=== PATIENT | female | born 1970 | race African-American/Black ===

== ENCOUNTER 2020-08-17 12:59 | Outpatient (CLI) | payer OTHER, SELFPAY ==
--- NOTE | ~2020-08-17 | XR_ITS ---
EXAMINATION: XR shoulder RT min 2V DATE: 08/17/2020 13:18 INDICATION: Right shoulder pain. TECHNIQUE: 4 views of right shoulder were obtained. COMPARISON: None. FINDINGS: Bone alignment is normal. No fracture. There is mild osteoarthritis of glenohumeral joint a nd acromioclavicular joint. IMPRESSION: 1. Polyarticular osteoarthritis. Reviewed, dictated and finalized at location A. OF PRODUCT
== END 2020-08-17 13:00 | disposition home or self-care (01) ==
PROVIDERS: PCP Internal Medicine; Visit Provider Nurse Practitioner
DX: M19.011 Primary osteoarthritis, right shoulder (principal)
CPT/HCPCS: 73030

== ENCOUNTER 2020-10-04 15:00 | Outpatient (RCR) | payer OTHER, SELFPAY ==
--- NOTE | 2020-08-30 15:08 | PTOPEVAL ---
Thank you for referring Peggy Block to [facility].? The patient is scheduled to be seen for therapy? 1 x/week for 5 weeks. Please review, sign, date and return this plan of care ALONDRA. I agree with and certify that the following plan of care is medically necessary. 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 She tries to keep proper posture, but is unsure if maintaining properly. Subjective Information She reports has been having Query Text:As Reported By Patient/ issues with her shoulder for Family some, but recently has increased pain at night. The pain is waking her night. She prefers to sleep on right side . C/o pins/needles into the scapular region with prolonged sleeping on shoulder. She has reports pain and limitations with reaching behind her back. She is limited with carrying objects on right side. 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 Denies problems with prolonged sitting or use of computer. She has been taking muscle relaxor with no significant relief. Diagnostic Tests X-Rays For This Problem Yes: mild OA Previous Treatments Previous Treatments For This Problem no Pain Assessment Pain Scale Used Numeric (1 - 10) Self Report Pain Assessment Right Shoulder(s) Reported Pain Level 3 Pain Description Aching,Numbness,Tingling Pain Frequency Chronic,Continuous Lowest Pain Intensity 1 Greatest Pain Intensity 8 Pain Aggravating Factors ADL's,Lifting Upper Extremity Range of Motion Scapular/ Shoulder Range of Motion Left Shoulder Flexion - Active 160 Shoulder Extension - Active 54 Shoulder Abduction - Active 160 Shoulder Medial Rotation - Active 78 Shoulder Medial Rotation - Active T8 Query Text:Reach Behind the Back Shoulder Lateral Rotation - Active 90 Shoulder Lateral Rotation - Active T1 Query Text:Reach Behind the Head Right Shoulder Flexion - Active 156 Shoulde
--- NOTE | 2020-10-04 15:44 | PTOPEVAL ---
Thank you for referring Peggy Block to [facility].? Peggy has received 6 therapy visits to address her shoulder impairments. She demonstrates improve shoulder range, shoulder and scapular strength and performance with daily task. She has achieved her therapy goals at this time. Will plan to D/C skilled therapy services. Please review, sign, date and return this discharge summary ALONDRA. I agree with and certify that the following plan of care is medically necessary. 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 She tries to keep proper posture, but is unsure if maintaining properly. Subjective Information She reports her shoulder pain Query Text:As Reported By Patient/ has improved when at rest. She Family has increase pain with performing her exercises. Denies pain is waking her night. Denies any C/o pins/ needles into the scapular region. She gets away from her computer 4-5x/day. 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 She denies any increased pain with reaching behind her back. Pain Assessment Right Shoulder(s) Reported Pain Level 0 Pain Frequency Intermittent Lowest Pain Intensity 0 Greatest Pain Intensity 3 Pain Aggravating Factors Exercise/Activity Upper Extremity Range of Motion Scapular/ Shoulder Range of Motion Right Scapular: Retraction Normal Scapular: Protraction Normal Scapular Downward Rotation Normal Scapular Upward Rotation Normal Shoulder Flexion - Active 165 Shoulder Extension - Active 42 Shoulder Abduction - Active 160 Shoulder Medial Rotation - Active 70 Shoulder Medial Rotation - Active T9 Query Text:Reach Behind the Back Shoulder Lateral Rotation - Active 90 Shoulder Lateral Rotation - Active T1 Query Text:Reach Behind the Head Upper Extremity Muscle Strength Testing Scapular/Shoulder Left Scapular Retraction - Middle Trapezius 3+ Fair + Scapular Retraction - Lower Trapezius 3- Fair - Shoulder Flexion Strength 5 Normal Shoulder Extension Strength 5 Normal Shoulder Abduction Strength 5 Normal Shoulder Medial Rotation Strength 5 Normal Shoulder Lateral Rotation Strength 5 Normal Right Scapular Retraction - Middle Trapezius 3+ Fair + Scapular Retraction - Lo
== END 2020-11-13 08:21 | disposition home or self-care (01) ==
LOC: ANHPT 15:00
PROVIDERS: PCP Internal Medicine; Visit Provider Clinical Nurse Specialist
DX: M25.512 Pain in left shoulder (principal); G89.29 Other chronic pain
CPT/HCPCS: 97035; 97110; 97140; 97161

== ENCOUNTER 2022-09-17 15:30 | Outpatient (RCR) | payer OTHER, SELFPAY ==
--- NOTE | 2022-08-21 09:15 | PTOPEVAL1 ---
Assessment and note entered by Brandon Hernandez, PT Evaluation Information Assessment Status Evaluation Diagnosis dorsalgia Onset late last year Subjective Information Patient reports late last year she woke up in the middle of the night with pain in her back. It has gotten progressively better, but is still there. She is currently taking tramadol for the pain at night before bed and would not like to continue doing that. Patient reports no radiating symptoms . 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 Clinical Summary Peggy is a 52 year old female coming into the clinic with R sided non-radiating back pain. It has improved since initial incident. Patient does have tightness in the low thoracic upper lumbar region mainly around L1, L2 along with some core and hip weakness and a small leg length discrepancy. The patient was also educated on posture with her sitting job and avoiding prolonged positions. Patient will do physical therapy to improve strength, stretch out the back, and manual and modalities for pain as warranted. Goal is to prevent this acute issue from turning into a chronic issue. These treatments will address the objective and functional deficits as defined above. The patient will be advanced safely and appropriately in order for the patient to progress towards his/her prior level of function. Additional exercises will be introduced and as well as a comprehensive home exercise program upon discharge, if needed, ?to ensure carryover of functional gains achieved in the clinic. This treatment plan has been reviewed and agreement upon by the patient.
--- NOTE | 2022-09-17 16:07 | PTOPDC ---
Assessment and note entered by Brandon Hernandez, PT Evaluation Information Assessment Status Discharge Diagnosis dorsalgia Onset 2 months ago Subjective Information Patient reports she is no longer needing to take medication for pain and it is at 2/10 at its worst . Patient states she does not always do her HEP, but has pulled them out when her back does stiffen up Reported Pain Level Pain Score 0: Self Report Additional Pain Score Comments 2 at its worst in the last week Assessment PT Clinical Summary Peggy is a 52 year old coming into the clinic for back pain, she reports she no longer needs her prescription pain meds and that the pain is at worst 2/10. She met her lower extremity and core strengthening goals. Discharged from skilled physical therapy. Plan of Care PT Services Indicated No Treatment Frequency and Discharged from skilled physical therapy. Duration
== END 2022-11-03 10:42 | disposition home or self-care (01) ==
LOC: ANHPT 15:30
PROVIDERS: PCP Internal Medicine; Visit Provider Nurse Practitioner
DX: M54.9 Dorsalgia, unspecified (principal)
CPT/HCPCS: 97110; 97112; 97140; 97161

== ENCOUNTER 2023-11-12 15:17 | Outpatient (CLI) | payer OTHER, SELFPAY ==
--- NOTE | ~2023-11-12 | XR_ITS ---
EXAMINATION:XR cervical spine 4-5V DATE: 11/12/2023 15:43 INDICATION: Right-sided predominant chronic cervicalgia TECHNIQUE: AP, lateral, lateral flexion, lateral extension and odontoid views of the cervical spine a re provided. COMPARISON: None FINDINGS: 5 degrees cervical dextrocurvature. 2 mm anterolisthesis C7 on T1 which is unchanged with flexion and extension. Normal alignment of the more cephalad cervical spine with normal motion on flexion and ex tension. Odontoid is intact. Normal atlantoaxial interval. Vertebral body heights are normal. Mild d isc height loss with degenerative endplate osteophytes at C4-C5, C5-C6 and C6-C7. Mild to moderate un covertebral osteoarthritis at these levels. Moderate to severe facet osteoarthritis at C7-T1 with mil d osteoarthritis of the more cephalad cervical spine. Prevertebral soft tissues are normal. Visualiz ed apices of lungs are clear. IMPRESSION: 1. Mild cervical spondylosis. 2. 2 mm anterolisthesis C7 on T1 which is unchanged with flexion and extension. Reviewed, dictated and finalized at location A.
== END 2023-11-12 15:18 ==
PROVIDERS: PCP Internal Medicine; Visit Provider Nurse Practitioner
DX: M43.02 Spondylolysis, cervical region (principal)
CPT/HCPCS: 72050

== ENCOUNTER 2024-09-28 14:46 | Outpatient (CLI) | payer OTHER, SELFPAY ==
--- NOTE | 2024-09-28 15:03 | ECHO_ITS ---
Patient Info Name: Peggy Block Age: 54 years : 1970 Gender: Female Ht: 68 in Wt: 230 lbs BSA: 2.28 m2 HR: 66 bpm BP: 131 / 84 mmHg Technical Quality: Good Exam Date: 09/28/2024 3:11 PM Exam Location: Echo Lab Patient Status: Outpatient Admit Date: 09/28/2024 Staff Ordering Physician: Elissa Devine NP Billing Spec: Cassandra Lara RDCS Attending Provider: Elissa Devine NP Referring Physician: Sybil RUSSELL; Exam Type: CA echo doppler color flow Study Info Indications Z82.49 - Family history of ischemic heart disease and other diseases of the circulatory system Complete two-dimensional, color flow and Doppler transthoracic echocardiogram is performed. Summary 1. Complete two-dimensional, color flow and Doppler transthoracic echocardiogram is performed. 2. Left ventricular chamber dimension is normal. 3. Left ventricular systolic function is normal, estimated at 60-65%. 4. The left ventricular diastolic function is normal. 5. E/e' 9 is minimally elevated. 6. Left atrial chamber dimension is mildly enlarged. 7. There is mild mitral valve regurgitation. 8. There is mild tricuspid valve regurgitation. 9. No pulmonary hypertension, estimated pulmonary arterial systolic pressure is 30 mmHg. Left Ventricle E/e' 9 is minimally elevated. Left ventricular chamber dimension is normal. Left ventricular systolic function is normal, estimated at 60-65%. The left ventricular diastolic function is normal. Right Ventricle Right ventricular systolic function is normal and with normal TAPSE 2.5 cm. Right ventricular chamber dimension is normal. Left Atria Left atrial chamber dimension is mildly enlarged. Right Atria Right atrial chamber dimension is normal. Aortic Valve The aortic valve is trileaflet. There is no aortic valve stenosis. There is no aortic valve regurgitation. Pulmonic Valve There is no pulmonic regurgitation. Mitral Valve There is no mitral valve stenosis. There is mild mitral valve regurgitation. Tricuspid Valve There is mild tricuspid valve regurgitation. No pulmonary hypertension, estimated pulmonary arterial systolic pressure is 30 mmHg. Pericardium/Pleural There is no pericardial effusion. Inferior Vena Cava Normal inferior vena cava with >50% collapse upon inspiration consistent with normal right atrial pressure, 5 mmHg. Aorta The aortic root size at the sinus of Valsalva is normal. Left Ventricular Outflow Tract Name Value Normal LVOT 2D LVOT Diameter 1.9 cm LVOT Doppler LVOT Peak Gradient 5 mmHg LVOT Mean Gradient 3 mmHg LVOT VTI 24 cm LVOT VTI/AV VTI Ratio 0.7 LVOT Stroke Volume 68 ml LVOT CO 14.7 l/min LVOT CI 6.5 l/min/m2 Pulmonic Valve Name Value Normal PV Doppler PV Peak Gradient 5 mmHg Mitral Valve Name Value Normal MV Doppler MV Decel [place] 412 cm/s2 MV PHT 78 ms MV Area (PHT) 2.8 cm2 4.0-5.0 MV Diastolic Function MV E Peak Velocity 111 cm/s MV A Peak Velocity 100 cm/s MV E/A 1.1 MV Decel Time 270 ms MV Annular TDI MV E/e' (Septal) 10.6 <=8.0 MV E/e' (Lateral) 9.0 <=8.0 MV E/e' (Average) 9.8 Tricuspid Valve Name Value Normal TV Regurgitation Doppler TR Peak Velocity 248 cm/s TR Peak Gradient 25 mmHg Estimated PAP/RSVP RA Pressure 5 mmHg <=5 PA Systolic Pressure 30 mmHg <36 RV Systolic Pressure 30 mmHg <36 Aorta Name Value Normal Ascending Aorta Ao Root Diameter (MM) 2.5 cm Ao Root Diam Index (MM) 1.1 cm/m2 Aortic Valve Name Value Normal AV Doppler AV Peak Velocity 155 cm/s AV Peak Gradient 10 mmHg AV Mean Gradient 6 mmHg AV VTI 35 cm AV Area (Cont Eq VTI) 2.0 cm2 >=3.0 AV Area (Cont Eq Andre) 2.0 cm2 AV Regurgitation 2D LVOT Area 2.8 cm2 Ventricles Name Value Normal LV Dimensions 2D/MM IVS Diastolic Thickness (2D) 0.9 cm 0.6-1.0 LVID Diastole (2D) 4.2 cm 3.8-5.2 LVIW Diastolic Thickness (2D) 0.9 cm 0.6-0.9 LVID Systole (2D) 2.6 cm 2.2-3.5 LVOT Diameter 1.9 cm LV Mass (2D Cubed) 122.89 g 67.00-162.00 LV Mass Index (2D Cubed) 54 g/m2 43-95 Relative Wall Thickness (2D) 0.44 LV Fractional Shortening/Ejection Fraction 2D/MM LV Fractional Shortening (2D) 40 % 27-45 LV EF (2D Teicholz) 71 % 54-74 LV Diastolic Volume (4C MOD) 97 ml LV EF (4C MOD) 62 % LV Diastolic Volume (2C MOD) 99 ml LV EF (2C MOD) 71 % LV Diastolic Volume (BP MOD) 101 ml 46-106 LV Diastolic Volume Index (BP MOD) 44 ml/m2 29-61 LV Systolic Volume (BP MOD) 33 ml 14-42 LV Systolic Volume Index (BP MOD) 14 ml/m2 8-24 LV EF (BP MOD) 67 % 54-74 LV Diastolic Length (4C) 7.3 cm LV Systolic Length (4C) 5.9 cm LV Stroke Volume (4C MOD) 60 ml Atria Name Value Normal LA Dimensions LA Dimension (MM) 3.1 cm 2.7-3.8 LA Volume (4C A-L) 59 ml LA Volume (BP A-L) 56 ml RA Dimensions RA Area (4C) 13.2 cm2 <=18.0 Report Signatures
--- OUTSIDE RECORDS SUMMARY | 2024-09-28 16:05 | XMS_ITS | Clinical Summary ---
Author Organization [facility] Phys[facility] Building [address] [place] [id number] Care Team Providers Care Production Illustrator Name Role Phone Corona Denney DO Primary Care Provider [phone] Allergies No known active allergies Medications multivitamin-Ca -iron-minerals tablet Take 1 tablet by mouth daily Active calcium carbonate-vitam in D3 250-125 mg-unit tablet Take 5 tablets by mouth once a week Active multivitamin tabletIndicatio ns:Vitamin Deficiency Prevention Take 1 tablet by mouth Active cholecalciferol (Vitamin D3) 400 unit capsule Active losartan (COZAAR) 100 mg tablet 02/02/2024 Active Active Problems Problem Noted Date Diagnosed Date Vitamin D deficiency 06/25/2018 Multinodular goiter 07/30/2017 Assessment & Plan (2024 7:17 PM CDT): - Thyroid Ultrasound performed in office today - Overall diffusely enlarged Thyroid gland with bilateral multiple nodules, - plan to perform left thyroid nodule FNA biopsy and possible aspiration of the right thyroid nodule - no compressive symptom Assessment & Plan (03/09/2023 2:36 PM CDT): - Thyroid Ultrasound performed in office today - Overall diffusely enlarged Thyroid gland with bilateral multiple nodules, - overall thyroid nodules remain stable, excepted growth - no compressive symptoms - follow up in one -2 year for a repeat Thyroid U/S Assessment & Plan (08/12/2021 4:33 PM SATELLITE PROJECT SITE MONITOR): - Thyroid Ultrasound performed in office today - Overall diffusely enlarged Thyroid gland with bilateral multiple nodules, The right dominant nodule slightly increased when compared to previous thyroid ultrasounds from 1.5 cm to 1.8 cm, noted mostly increase in fluid component - thyroid nodules remain stable - no compressive symptoms - follow up in one year for a repeat Thyroid U/S Assessment & Plan (07/30/2020 4:32 PM SATELLITE PROJECT SITE MONITOR): - Thyroid Ultrasound performed in office today - Overall diffusely enlarged Thyroid gland with bilateral multiple nodules, not much changed from previous 2017 U/s - no compressive symptoms - recheck TSH - follow up in one year for a repeat Thyroid U/S Assessment & Plan (09/02/2019 4:00 PM SATELLITE PROJECT SITE MONITOR): - Thyroid Ultrasound performed in office today - Overall diffusely enlarged Thyroid gland with bilateral multiple nodules, not much changed from previous 06/2018 U/s - follow up in one year for a repeat Thyroid U/S Assessment & Plan (06/29/2018 4:32 PM SATELLITE PROJECT SITE MONITOR): - Thyroid Ultrasound performed in office today - check TSH - lab work - Overall diffusely enlarged Thyroid gland with bilateral multiple nodules, not much changed from previous 06/2017 U/s - follow up in one year for a repeat Thyroid U/S , if any change noted in size, will recommend FNA Assessment & Plan (07/30/2017 9:56 AM SATELLITE PROJECT SITE MONITOR): - Thyroid Ultrasound performed in office today - check TSH - lab work - Overall diffusely enlarged Thyroid gland with bilateral multiple nodules, not much changed from previous 06/2016 U/s - follow up in one year for a repeat Thyroid U/S , if any change noted in size, will recommend FNA Goiter 08/08/2016 Overview (10/09/2016): Thyroid goiter Genital herpes simplex type 2 08/08/2016 Overview (10/09/2016): Genital herpes simplex type 2 Surgical History Surgery Date Site/Laterality Comments TONSILLECTOMY Tonsillectomy TONSILLECTOMY Tonsillectomy OTHER SURGICAL HISTORY : x 2 Medical History Medical History Date Comments History of section H/O: section; Comments: MH 06/13/2016 - X2 Goiter Thyroid goiter Hx Other Medical ; Comm ents: RED 08/08/2016 - Family History Medical History Relation Name Comments Heart attack Father Myocardial infa rction; Cause of : Myocardial infarction Bone cancer Paternal Grandmother Cancer, bone; Breast cancer Paternal Grandmother Cancer , breast; Relation Name Status Comments Father (Age 62) Paternal Grandmother Social History Tobacco Use Types Packs/Day Years Used Date Smoking Tobacco: Never Smokeless Tobacco: Never Alcohol Use Standard Drinks/Week Comments Yes 0 (1 standard drink = 0.6 oz pur e alcohol) PHQ-2 Answer Date Recorded PHQ-2 Total Score (If total score is 3 or more points, staff should administer the PHQ-9) 0 08/12/2021 Comments Unknown Sex and Gender Information Value Date Recorded Sex Assigned at Not on file Legal Sex Female 1:01 PM SATELLITE PROJECT SITE MONITOR Gender Identity Not on file Sexual Orientation Not on file Obstetrics History Last Filed Vital Signs Vital Sign Reading Time Taken Comments Blood Pressure 122/80 04/06/2024 3:10 PM CDT Pulse 87 04/06/2024 3:10 PM CDT Temperature - - Respiratory Rate 16 04/06/2024 3:10 PM CDT Oxygen Saturation - - Inhaled Oxygen Concentration - - Weight 101.6 kg (224 lb) 04/06/2024 3:10 PM CDT Height 170.2 cm (5' 7 ) 04/06/2024 3:10 PM CDT Body Mass Index 35.08 04/06/2024 3:10 PM CDT Plan of Treatment Health Maintenance Due Date Last Done Comments Cervical Cancer Screening 1970 Colon Cancer Screening-Colonoscopy 1970 Hepatitis C Screening 1970 Hepatitis B Screening 1989 Regular Well Visit/Exam 18-64 1989 Zoster Vaccine (1 of 2) 2021 Depression Screening 08/12/2022 08/12/2021, 07/30/2020, 08/01/2019, Additional history exists Influenza Vaccine (#1) 2024 04/24/2016 Breast Cancer Screening-Mammogram 10/29/2024 10/30/2023, 10/06/2022, 09/05/2021, Additional history exists DTaP/Tdap/Td Vaccine (3 - Td or Tdap) 10/09/2028 10/09/2018, 09/06/2008 Pneumococcal vaccine <65 Aged Out No longer eligible based on patient's age to complete this topic Procedures Procedure Name Priority Date/Time Associated Diagnosis Comments SCREENING MAMMOGRAM BILATERAL W CYRUS Schedule Routine, Read Routine (OP Routine) 10/30/2023 8:52 AM CDT Screening mammogram, encounter for from Last 3 Months or Most Recently Relevant to Health Maintenance Results * (ABNORMAL) Screening Mammogram Bilateral W Cyrus (10/30/2023 8:52 AM CDT) Anatomical Region Laterality Modality Breast Bilateral Mammography Narrative 10/30/2023 9:11 AM CDT Examination: Screening Mammogram Bilateral W Cyrus: 10/30/23 Clinical: Screening mammogram, encounter for. Prior Study Comparisons: Comparison was made to the prior available relevant studies at the time of interpretation. Findings: Screening Mammogram Bilateral W Cyrus Left 1) Focal Asymmetry: There is a focal asymmetry seen in the outer region of the left breast in the middle depth on the CC view. This is a new finding. This finding needs additional imaging evaluation. Right No significant masses, malignant type calcifications, skin thickening, nipple retraction, or significant lymphadenopathy is noted in this breast. The CAD review showed no significant findings. The breasts are heterogeneously dense, which may obscure small masses. The patient will be notified of results by letter. Impression: BI-RADS ATLAS category (left): 0 - Incomplete: Needs Additional Imaging Evaluation Overall Assessment: 0 - Incomplete: Needs Additional Imaging Evaluation Recommendation: - Additional Mammography views with possible ultrasound for the left breast. us Self Screening Mammogram IMG MAMMO PROCEDURES Fi nal Result from Last 3 Months or Most Recently Relevant to Health Maintenance Insurance [employer] HMO [facility] O [facility] O Care Teams Production Illustrator Relationship Specialty Start Date End Date Corona Denney DO PCP - General Internal Medicine 09/05/21
--- OUTSIDE RECORDS SUMMARY | 2024-09-28 16:05 | XMS_ITS | Clinical Summary ---
Author Organization [facility] Address [address] [place] [address] Care Team Providers Care Senior Hris Analyst Name Role Phone Sybil Elissa Casiano APRN Primary Care Provider [phone] Allergies No known active allergies Medications HYDROcodone-acet aminophen (NORCO) 5-325 MG tabletIndication s:Acute Pain < 7 Day Supply Take 1 tablet by mouth every 6 (six) hours as needed for Pain. Indications : Acute Pain < 7 Day Supply 20 tablet 06/30/2023 Active Social History Tobacco Use Types Packs/Day Years Used Date Smoking Tobacco: Never Assessed Comments Unknown Sex and Gender Information Value Date Recorded Sex Assigned at Not on file Legal Sex Female 7:22 PM DRAMATIC TEACHER Gender Identity Not on file Sexual Orientation Not on file Last Filed Vital Signs Vital Sign Reading Time Taken Comments Blood Pressure 164/98 06/29/2023 7:30 PM DRAMATIC TEACHER Pulse 74 06/29/2023 7:30 PM DRAMATIC TEACHER Temperature 35.2 C (95.3 F) 06/29/2023 7:30 PM DRAMATIC TEACHER Respiratory Rate 18 06/29/2023 7:30 PM DRAMATIC TEACHER Oxygen Saturation 99% 06/29/2023 7:30 PM DRAMATIC TEACHER Inhaled Oxygen Concentration - - Weight 99.8 kg (220 lb) 06/29/2023 7:30 PM DRAMATIC TEACHER Height 171.5 cm (5' 7.5 ) 06/29/2023 7:30 PM DRAMATIC TEACHER Body Mass Index 33.95 06/29/2023 7:30 PM DRAMATIC TEACHER Plan of Treatment Health Maintenance Due Date Last Done Comments Cervical Cancer Screening Pa p Smear (Age 30 to 64) Every 3 Years 1970 Colorectal Cancer Screening Colonoscopy (10 Years) 1971 Annual Physical 1974 Hepatitis C 1989 Hepatitis B Vaccines (1 of 3 - 19+ 3-dose series) 1990 Cervical Cancer Screening Pa p with HPV Testing (Age 30 to 64) Every 5 Years 2001 Cervical Cancer Screening wi th HPV 2001 Mammogram Screening 2011 COVID-19 Vaccine (4 - 2023-2 5 season) 2024 06/30/2021, 10/25/2020, 09/27/2020 Influenza Adult (#1) 2024 05/16/2023, 05/01/2022, 04/24/2016 DTaP, Tdap and Td Vaccines ( 3 - Td or Tdap) 10/09/2028 10/09/2018, 09/06/2008 Zoster Vaccines Completed 10/26/2022, 06/13/2022 Meningococcal B Vaccine Aged Out No l onger eligible based on patient's age to complete this topic Meningococcal Vaccine Aged Out No [place] eligible based on patient's age to complete this topic Pneumococcal Vaccine: Pediatrics (0 to 5 Years) and At-Risk Patients (6 to 64 Years) Aged Out No longer eligible b ased on patient's age to complete this topic RSV Immunizations Under 20 Months Aged Out No longer eligible b ased on patient's age to complete this topic Insurance [facility] [place] [id number] [place] [address] Care Teams Senior Hris Analyst Relationship Specialty Start Date End Date Elissa Devine APRN [address] [place] [address] [address] [place] [address] PCP - General NURSE PRACTITIONER 06/29/23
--- OUTSIDE RECORDS SUMMARY | 2024-09-28 16:05 | XMS_ITS | Referral Summary ---
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): - Thyroid Ultrasound performed in office today [...] U/S Assessment & Plan (07/30/2020 4:32 PM FIELD MECHANICAL METER TESTER): - Thyroid Ultrasound performed in office today - Overall diffusely enlarged Thyroid gland with bilateral multiple nodules, not much changed from previous 2017 U/s - no compressive symptoms - recheck TSH - follow up in one year for a repeat Thyroid U/S Assessment & Plan (09/02/2019 4:00 PM FIELD MECHANICAL METER TESTER): - Thyroid Ultrasound performed in office today - Overall diffusely enlarged Thyroid gland with bilateral multiple nodules, not much changed from previous 06/2018 U/s - follow up in one year for a repeat Thyroid U/S Assessment & Plan (06/29/2018 4:32 PM FIELD MECHANICAL METER TESTER): - Thyroid Ultrasound performed in office today - check TSH - lab work - Overall diffusely enlarged Thyroid gland with bilateral multiple nodules, not much changed from previous 06/2017 U/s - follow up in one year for a repeat Thyroid U/S , if any change noted in size, will recommend FNA Assessment & Plan (07/30/2017 9:56 AM FIELD MECHANICAL METER TESTER): - Thyroid Ultrasound performed in office today [...] Overview (10/09/2016): Genital herpes simplex type 2 Social History Tobacco Use Types Packs/Day Years [...] on file Legal Sex Female 1:01 PM FIELD MECHANICAL METER TESTER Gender Identity Not on file Sexual Orientation [...] 04/06/2024 3:10 PM CDT Plan of Treatment Not on file Procedures Procedure Name Priority Date/Time Associated Diagnosis [...] Most Recently Relevant to Health Maintenance Insurance [facility] HMO Care Teams Road Design Engineer Relationship Specialty Start Date End Date Corona Denney DO PCP - General Internal Medicine 09/05/21
--- OUTSIDE RECORDS SUMMARY | 2024-09-28 16:05 | XMS_ITS | Continuity of Care Document ---
Author Organization [facility] Address [address] [address] [place] [address] Phone Care Team Providers Care Drawer Hardware Worker Name Role Phone Ruben Cesar MD Unavailable Unavailable Allergies, Adverse Reactions, Alerts Substance Reaction Status Criticality No Known allergies Medications Medication Instructions Dosage Effective Dates (start - stop) Status Comments Control Pill Oral 1 1/2 scoop po BID - Active Aleve 220 mg Tab as needed - Active Procedures Procedure Date Colonoscopy Flex; W/bx 1/mx Level Iv-surg Path Gross/micro 15 Colonoscopy Flex; Dx (sep Pro) 10 Offic Cons New/estab Mod [id number] Routine Serum Collection Offic/outpt E&m New Mod-hi 45 7 Routine Serum Collection Advance Directives Directive Yes / No Effective Date File Name No Information Encounters Encounter Description Practice Location Reason(s) For Visit Diagnoses Date Provider Providers Copied on Encounter [facility], [address] [address], [place], [id number], [place] tel:[phone] [facility] No Information 0 Tali Miranda. [address] [facility], [place], [place], [id number], [place]. tel:[phone] [facility], [address] [address], [place], [id number], [place] tel:[phone] [facility] Internal hemorrhoidsColon Cancer ScreeningRectal ProlapseInternal HemorrhoidsRecta l Prolapse 5 No Information Referring Provider: Referral Self, USE FOR SELF REFERRALS. [facility], [address] [address], [place], [id number], [place] tel:[phone] [facility] Personal History Colon PolypsInternal Hemorrhoids 0 No Information Referring Provider: Jorge Whittaker MD D, [address] [facility], [place], [address]. tel:[phone] Offic Cons New/estab Mod [facility], [address] [address], [place], [id number], [place] tel:[phone] [facility] Rectal bleeding (chief complaint) Rectal Bleed/BRBPRConst ipation UnspecifiedPerso nal History Colon Polyps 0 Carolynn Cardona. [address] [facility], [facility] [address], [place], [place], [id number], [place]. tel:[phone] Referring Provider: Jorge Whittaker MD D, [address] [facility] [address], [place], [address]. tel:[phone] [facility], [address] [address], [place], [id number], [place] tel:[phone] [facility] RLQ PainPersonal History Colon Polyps 7 Luis A Loving. [address] [facility], [place], [place], [id number], [place]. tel:[phone] Referring Provider: Inder Gunn MD B, [address] [facility] [address], [place], [address] . tel:[phone] Offic/outpt E&m New Mod-hi 45 [facility], [address] [address], [place], [id number], [place] tel:[phone] [facility] RLQ PainPersonal History Colon Polyps 200 7 Luis A Loving. [address] [facility], [facility] [address], [place], [place], [id number], [place]. tel:[phone] Referring Provider: Referral Self, USE FOR SELF REFERRALS. Family History Family Member Type Diagnosis Age At Onset First degree family history Problem (finding) No history of Ulcerative Colitis First degree family history Problem (finding) No history of Cancer, colon First degree family history Problem (finding) No history of Crohn's First degree family history Problem (finding) No Family history of No history of Colon Polyps Mother Problem (finding) Colon polyps Payers Payer name Insurance type Covered libertarian ID Authoriza ti(s) [facility] [id number] Social History Type Description Quantity Date Captured Comments Sex Female Smoking Status No Information Chief Complaint And Reason For Visit No Information Reason For Referral Reason For Referral No Information History Of Present Illness Encounter Date Complaint History Of Prese nt Illness No Information Functional Status Date Functional Assessmen t No Information Instructions Date Instruction Additional Infor manolo Hemorrhoids Related to Inter nal hemorrhoids High Fiber Diet Related to Inter nal hemorrhoids Assessments Type Assessment Date No Information Patient Care Teams Name Effective Dates (start - stop) Status Members No Information
--- OUTSIDE RECORDS SUMMARY | 2024-09-28 16:05 | XMS_ITS | Clinical Summary ---
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 Gender Identity Not on file Sexual Orientation Not on file Plan of Treatment Health Maintenance Due Date Last Done Comments Hepatitis C Virus (HCV) Screening 1971 Hepatitis B Immunization (1 of 3 - 19+ 3-dose series) 1990 Pap Smear 1992 Cervical Cancer Screening (CCS) 2001 HPV/Cotest 2001 Colonoscopy 2016 Colorectal Cancer Screening 2016 Cologuard 2021 Immunochemical Fecal Occult Blood 2021 Mammogram 2021 Pneumococcal Immunization (5 0+ years) (1 of 1 - PCV) 2021 Zoster Immunization (1 of 2) 2021 Influenza Immunization (#1) 2024 04/24/2016 SARS-COV-2 Immunization ( season) 2024 Respiratory Syncytial Virus (RSV) Immunization (Adult) (1 - 1-dose 75+ series) 2046 DTaP/Tdap/Td Immunization Discontinued 2018, 09/06/2008 TdaP Immunization Completed 10/09/2018, 09/06/2008 Meningococcal Immunization (ACWY) Aged Out No longer eligible based on patient's age to complete this topic Pneumococcal Immunization Combined Aged Out No longer eligible based on patient's age to complete this topic Rotavirus Immunization Aged Out No lo nger eligible based on patient's age to complete this topic
== END 2024-09-28 14:47 | disposition home or self-care (01) ==
PROVIDERS: PCP Nurse Practitioner; Visit Provider Nurse Practitioner
DX: R93.1 Abnormal findings on diagnostic imaging of heart and coronary circulation (principal); R06.00 Dyspnea, unspecified; Z82.49 Family history of ischemic heart disease and other diseases of the circulatory system
CPT/HCPCS: 93306

== ENCOUNTER 2025-03-02 19:21 | Emergency (ER) | payer OTHER, SELFPAY ==
[2025-03-02 20:06] VITALS: BP 156/82; PULSE 83; RESP 16; TEMP 36; O2SAT 100
[2025-03-02 20:17] LABS: EDUAAPPEAR Clear; EDUABILI Negative (Negative); EDUABLOOD Trace (Negative); EDUACOLOR1 Yellow; EDUAGLUCOSE Negative (Negative); EDUAKETONE Negative (Negative); EDUALEUKO Trace (Negative); EDUANITRATE Negative (Negative); EDUAPH 8.0; EDUAPROTEIN Negative (Negative); EDUASPGRAVITY 1.015; EDUAUROBILI 0.2
--- NOTE | 2025-03-02 20:17 | ED.FEMALEGU ---
HPI - Female Genitourinary General Chief complaint: Urogenital-Female Stated complaint: UTI SYMPTOMS Time Seen by Provider: 03/02/25 20:17 Source: patient and RN notes reviewed Mode of arrival: ambulatory Limitations: no limitations History of Present Illness HPI Narrative: 54-year-old female presented for complaint of foul odor when urinating, and occasional frequency intermittently for about 2 months. States she does not know if the urine is causing the odor. Denies dysuria, hematuria, nausea, vomiting, abdominal pain, flank pain, constipation, diarrhea, fevers or chills. Patient has been tested for BV and yeast by OBGYN. Related Data Home Medications ?Medication ?Instructions ?Recorded ?Confirmed ?Last Taken ?Type multivitamin 1 tablet PO DAILY 10/24/21 03/02/25 Unknown History Saccharomyces boulardii 250 mg 250 mg PO BID 06/25/23 03/02/25 Unknown History capsule (Daily Probiotic (S. boulardii)) cholecalciferol (vitamin D3) 125 125 mcg PO DAILY 06/25/23 03/02/25 Unknown History mcg (5,000 unit) capsule Allergies Allergy/AdvReac Type Severity Reaction Status Date / Time No Known Allergies Allergy Verified 03/02/25 20:04 Review of Systems Review of Systems: CONSTITUTIONAL: Denies body aches, fever, chills, or sweats. CARDIOVASCULAR: Denies chest pain, palpitations, or edema. RESPIRATORY: Denies cough or dyspnea. GASTROINTESTINAL: Denies abdominal pain, nausea, vomiting, or diarrhea. GENITOURINARY: Reports odor when urinating denies dysuria, frequency, urgency, hematuria, flank pain, discharge SKIN: Denies rash, itching, or wounds. MUSCULOSKELETAL: Denies back pain or myalgia. [facility] Past Medical History Medical History Cyst of bone of right foot History of measles, mumps, rubella (MMR) vaccination unknown Post-menopausal Vitamin D deficiency Family History Family History Mother Family history of thyroid disease Father Family history of coronary artery disease Social History Social History Smoking status: Never smoker Alcohol intake: current Do You Feel Safe in your Home?: Yes Lack of Transportation: No Lack of Food: Never True Current Housing: I Have Housing Concerned About Future Housing: No Difficulty Paying Gas/Electric Bills: No Difficulty Paying for Meds: No Currently Unemployed: No Education: Bachelor's Degree Difficulty w/ Childcare or Family Care: No Comments At time of signature, I have reviewed and agree with nursing past medical, surgical, social and family history unless otherwise noted. Please see nursing chart for further information. There is no relevant family history pertinent to the presenting complaint Exam Narrative: GENERAL: Well-appearing and in no acute distress. ENT: Mucous membranes pink and moist. NECK: Normal AROM. Supple. CHEST: No respiratory distress. Clear to auscultation. HEART: Regular rate and rhythm. ABDOMEN: Soft, nontender, nondistended, normal active bowel sounds. No CVA tenderness SKIN: Warm, dry, no rash. NEURO: No focal deficits. Alert and oriented x3. Gait steady. PSYCH: Normal affect. Course Course Emergency Course: Patient is aware of diagnosis, understands and agrees to treatment plan. Anticipatory guidance given. Patient agrees to follow-up as directed and is aware of reasons to seek care at the emergency department. Portions of this record may have been created with voice recognition software Level of Care: Express Care Visit Vital Signs Vital signs: Vital Signs Temperature 96.8 F L 03/02/25 20:06 Pulse Rate 83 03/02/25 20:06 Respiratory Rate 16 03/02/25 20:06 Blood Pressure 156/82 H 03/02/25 20:06 Pulse Oximetry 100 03/02/25 20:06 Temperature 96.8 F L 03/02/25 20:06 Pulse Rate 83 03/02/25 20:06 Respiratory Rate 16 03/02/25 20:06 Blood Pressure 156/82 H 03/02/25 20:06 Pulse Oximetry 100 03/02/25 20:06 Reviewed MDM - Female Genitourinary MDM Narrative Medical decision making narrative: Discussed physical exam findings in urine dip, will culture. Advised supportive measures and signs/symptoms to go to the ER. Pt is appropriate for outpt treatment and f/u. Differential Diagnosis Differential diagnosis: Likely urinary tract infection, vaginitis and cystitis Lab Data Labs: Lab Results 03/02/25 Range/Units 20:15 POC Urine Color Yellow POC Urine Clarity Clear POC Urine pH 8.0 POC Ur Specif [place] 1.015 POC Urine Protein Negative (Negative) POC Ur Glucose (UA) Negative (Negative) POC Urine Ketones Negative (Negative) POC Urine Blood Trace (Negative) POC Urine Nitrite Negative (Negative) POC Urine Bilirubin Negative (Negative) POC Urine Urobilinogen 0.2 POC U Leukocyte Esteras Trace (Negative) Discharge Plan Discharge Clinical Impression: Urinary frequency Patient Disposition: Home Condition: Stable Instructions: Antibiotic Form, Urinary Tract Infection in Women (ED) Additional Instructions: Your urine will be sent of for a culture to determine if bacteria is causing your symptoms. If the culture shows a UTI, you will be notified and an antibiotic will be called in for you. Continue to drink plenty of water you will need to follow up with your PCP or Obgyn Go to the ER for any worsening symptoms or concerns. Patient Language: Indonesian Prescriptions: No Action losartan 100 mg tablet 100 mg PO DAILY Qty: 90 3RF multivitamin Tablet 1 tablet PO DAILY cholecalciferol (vitamin D3) 125 mcg (5,000 unit) capsule 125 mcg PO DAILY Saccharomyces boulardii [Daily Probiotic (S. boulardii)] 250 mg capsule 250 mg PO BID Follow-up/Referrals: Elissa Devine NP [Primary Care Provider, Internal Medicine] Time of Disposition: 20:24
== END 2025-03-02 20:26 | disposition home or self-care (01) ==
PROVIDERS: Emergency Provider Nurse Practitioner Family; PCP Nurse Practitioner
DX: R35.0 Frequency of micturition (principal); E55.9 Vitamin D deficiency, unspecified
CPT/HCPCS: 81003; 87086; 99213; G0463